=== PATIENT | male | born 1990 | race American Indian/Alaskan Native ===

== ENCOUNTER 2018-12-11 05:33 | Emergency (ER) | payer BC, MEDICAID, MEDICARE ==
[2018-12-11 06:00] VITALS: RESP 20; O2SAT 99
[2018-12-11] MEDS ORDERED: Sodium Chloride 0.9% 1,000 ML IV ONE (06:21)
--- NOTE | 2018-12-11 06:25 | C.PDOC ---
History Of Present Illness 28 year old male with PMHx of Autism is brought to the ED by utilization specialist for evaluation of several episodes of vomiting that started last night. Door Repairer Bus reports patient ate dinner at 20:00 and around 23:00 patient started vomiting. Door Repairer Bus reports that up until 04:30 patient vomited 5-6 times. Door Repairer Bus admits to nausea and poor appetite but denies fever, chills, abdominal pain, diarrhea, rash, dysuria, hematuria, and back pain. Door Repairer Bus reports last time patient drank fluids was at 04:30. Time Seen by Provider: 12/11/18 05:53 Chief Complaint (Nursing): GI Problem History Per: Patient, Family History/Exam Limitations: no limitations Onset/Duration Of Symptoms: Hrs Current Symptoms Are (Timing): Still Present Context: Food Location Of Pain/Discomfort: Diffuse Quality Of Discomfort: "Pain" Associated Symptoms: Nausea, Vomiting, Loss Of Appetite. denies: Diarrhea, Urinary Symptoms Exacerbating Factors: Food Recent travel outside of the [place]: No Additional History Per: Family Past Medical History Reviewed: Historical Data, Nursing Documentation, Vital Signs Vital Signs: Last Vital Signs Temp 98.9 F 12/11/18 05:57 Pulse 106 H 12/11/18 05:57 Resp 20 12/11/18 05:57 BP 147/96 H 12/11/18 05:57 Pulse Ox 99 12/11/18 05:57 - Medical History Other PMH: autism Surgical History: No Surg Hx Family History: States: Unknown Family Hx - Social History Hx Tobacco Use: No Hx Alcohol Use: No Hx Substance Use: No Review Of Systems Constitutional: Negative for: Fever, Chills Cardiovascular: Negative for: Chest Pain, Palpitations Respiratory: Negative for: Shortness of Breath Gastrointestinal: Positive for: Nausea, Vomiting, Abdominal Pain. Negative for: Diarrhea Skin: Negative for: Rash Neurological: Negative for: Weakness, Numbness, Headache Physical Exam - Physical Exam Appears: Non-toxic, No Acute Distress Skin: Normal Color, Warm, Dry Head: Atraumatic, Normacephalic Eye(s): bilateral: Normal Inspection Nose: Flaring Oral Mucosa: Moist Throat: No Erythema Neck: Normal ROM, Supple Chest: Symmetrical Cardiovascular: Rhythm Regular Respiratory: Normal Breath Sounds, No Rales, No Rhonchi, No Wheezing Gastrointestinal/Abdominal: Soft, No Tenderness, No Guarding, No Rebound Back: No CVA Tenderness Neurological/Psych: Oriented x3, Normal Sensation ED Course And Treatment O2 Sat by Pulse Oximetry: 99 (ON RA) Pulse Ox Interpretation: Normal Medical Decision Making Medical Decision Making: Plan: * Labs * Pepcid 20 mg IVP * IV fluids * Zofran 8 mg IVP * Influenza A B Patient's father requests for medications to be given PO instead of IV and would like to hold off on any labs/testing due to autism. Pending PO challenge Disposition - Disposition Disposition Time: 07:00 Condition: STABLE Forms: [employer] (Sinhala) - Clinical Impression Clinical Impression: Vomiting - PA / SLIP LASTER / Resident Statement MD/DO has reviewed & agrees with the documentation as recorded. - Scribe Statement The provider has reviewed the documentation as recorded by the Scribe Vasile Kemp All medical record entries made by the Scribe were at my direction and personally dictated by me. I have reviewed the chart and agree that the record accurately reflects my personal performance of the history, physical exam, [facility] decision making, and the department course for this patient. I have also personally directed, reviewed, and agree with the discharge instructions and disposition. Physician Patient Turnover Patient Signed Over To: Swapna Alonso Handoff Comments: pending PO challenge
[2018-12-11 08:27] VITALS: BP 141/77; PULSE 108; TEMP 100.7
== END 2018-12-11 08:34 | disposition home or self-care (01) ==
LOC: C.ER 05:33
DX: R11.10 Vomiting, unspecified (principal)